=== PATIENT | male | born 1955 | race Caucasian/White ===

== ENCOUNTER → 2016-06-07 | Outpatient (CLI) | payer MEDICARE ==
--- NOTE | 2016-06-13 15:42 | Diagnostic Imaging Report ---
Indications: Right shoulder pain since lifting injury one month prior Technique: Sagittal oblique T1 weighted fast spin echo, sagittal oblique and coronal oblique T2 weighted fat saturated fast spin echo, coronal oblique and axial proton density weighted fat saturated fast spin echo sequences of the right shoulder were performed without intravenous or intra-articular gadolinium administration. Findings: Comparison: None Right supraspinatus and infraspinatus tendons are intact with nonspecific mildly increased signal distally, not sufficiently hyperintense to be considered fluid. No tendon thickening or retraction. No muscular atrophy. Teres minor, subscapularis muscles and tendons intact, unremarkable. Prominent marrow signal hyperintensity on either side of the acromioclavicular joint, latter irregular in configuration with intra-articular fluid, prominent marginal spurring, and surrounding soft tissue edema. Inferior margin spurring results in significant focal compression of the musculotendinous junction of the supraspinatus, which itself appears focally edematous. Type I acromion, neutral angulation. Subacromial space 7 mm. No significant effusion in the subacromial/subdeltoid bursa, glenohumeral joint or biceps tendon sheath. Glenohumeral joint space intact, unremarkable in appearance. Glenoid labrum grossly intact and unremarkable in appearance. Long head biceps tendon intact, normally located within the bicipital groove, unremarkable in appearance to glenoid insertion. Small circumscribed fluid signal foci within superolateral periphery of humeral head beneath supraspinatus tendon insertion. IMPRESSION: Significant acromioclavicular arthropathy with spurring, small effusion, adjacent marrow space and surrounding soft tissue edema. This is compatible with chronic degenerative arthropathy with superimposed acute trauma or arthritis. These findings result in significant focal impingement upon the supraspinatus musculotendinous junction with focal edema of the latter. Rotator cuff otherwise intact with nonspecific increased signal in distal aspects of supraspinatus and infraspinatus tendons compatible with nonspecific tendinopathy. No evidence of significant tear. Small humeral head cysts likely degenerative
== END | disposition home or self-care (01) ==
LOC: MRI 16:26
DX: M25.511 Pain in right shoulder (principal)

== ENCOUNTER → 2016-11-11 | Outpatient (CLI) | payer MEDICARE, MEDICAID | END | disposition home or self-care (01) | LOC: VAS 09:49 → EDSTATUS 14:05 | DX: M79.605 Pain in left leg (principal) | CPT/HCPCS: 93926 ==

== ENCOUNTER → 2016-11-14 | Outpatient (CLI) | payer MEDICARE, MEDICAID ==
--- NOTE | 2016-11-14 14:05 | Diagnostic Imaging Report ---
Indication: Lumbar radiculopathy times one year Technique: Sagittal T1 and T2 fast spin echo, sagittal STIR, axial T1 and T2 fast spin-echo images of the lumbar spine Comparison: No comparison MRIs. Reference made to CT abdomen pelvis dated 05/14/15 Findings: Bony alignment is normal. Vertebral body heights are preserved. Vertebral body marrow signal is normal. The disc spaces are preserved. Conus medullaris terminates at the L1 level. At L4-5, there is broad-based central posterior disc protrusion. The disc protrusions approximate 6 mm beyond the posterior margin of the vertebral body. This results in moderate narrowing of the spinal canal, and and may upon the bilateral lateral recesses. There may be slight narrowing of the bilateral neural foramina, due to facet hypertrophy and the protruding disc. At L1-2, there is bilateral facet hypertrophy. No significant disc bulge or protrusion, spinal stenosis, or neural frontal stenosis. At L2-3, facet and ligamentum flavum hypertrophy results in mild narrowing of the spinal canal in the transverse dimension. No significant disc protrusion, spinal stenosis, or neural foraminal stenosis. At L3-4, there is facet and ligamentum flavum hypertrophy. No significant disc bulge or protrusion, spinal stenosis, or neural foraminal stenosis. At the remaining levels, no significant disc bulge or protrusion, spinal stenosis, or neural foraminal narrowing. The surrounding soft tissues are unremarkable. Impression: Posterior central broad-based disc protrusion L4-5. This results in moderate spinal canal stenosis, as well as possibly impinging upon the bilateral lateral recesses and therefore the L5 nerve roots. Mild degenerative changes elsewhere, as described, without evidence of other significant neural impingement
--- NOTE | 2016-11-14 14:30 | Diagnostic Imaging Report ---
Indication: Neck pain with left-sided radiculopathy Technique: Sagittal T1 FLAIR PROPELLER, sagittal T2 PROPELLOR, sagittal STIR, axial T2 PROPELLER, axial 3D COSMIC ASPIR images were obtained through the cervical spine Comparison: 09/22/2009 Findings: Bony alignment is normal. Vertebral marrow signal is normal. Vertebral body heights are preserved. There is mild degenerative disc narrowing at C5-6, moderate degenerative disc narrowing at C6-7. The remaining disc spaces are preserved. Intrinsic cord signal is normal. At C4-5, no significant disc bulge or protrusion, or spinal stenosis. There is bilateral moderate neural foraminal stenosis, predominantly due to facet hypertrophy. At C5-6, there is, as mentioned earlier, mild degenerative disc narrowing. No significant disc bulge or protrusion or spinal stenosis. There is mild to moderate bilateral neural foraminal stenosis, predominantly due to facet hypertrophy. At C6-7 there is, as noted earlier, moderate degenerative disc narrowing. There is mild central posterior disc protrusion, but this does not significantly narrow the spinal canal or impinge upon the spinal cord. There is moderate bilateral neural foraminal stenosis, due to facet and uncinated hypertrophy. At C7-T1, no significant disc bulge or protrusion. There is mild bilateral neural foraminal stenosis, predominantly due to facet hypertrophy. Compared to the prior study, the disc narrowing at C6-7 has progressed slightly. The disc protrusion at this level is unchanged. Neural foraminal stenoses at C4-5 and C5-6 have progressed. Stenoses at C6-7 or also reported previously At the remaining disc levels, no significant disc bulge or protrusion, spinal stenosis, or neural foraminal stenosis. The included extraspinal soft tissues are unremarkable. Impression: Multilevel degenerative changes with areas of neural foraminal stenosis, as described on a level by level basis above. Note apparent slight progression of neural foraminal stenosis at C4-5 and C5-6 since earlier study of 09/22/2009 No acute bony injury
== END | disposition home or self-care (01) ==
LOC: MRI 12:47
DX: M54.17 Radiculopathy, lumbosacral region (principal); M54.12 Radiculopathy, cervical region; M51.26 Other intervertebral disc displacement, lumbar region
CPT/HCPCS: 72141; 72148

== ENCOUNTER 2017-04-29 08:46 | Outpatient (CLI) | payer MEDICARE, MEDICAID ==
--- NOTE | 2017-04-29 12:02 | Diagnostic Imaging Report ---
Indication: History of abdominal hernia and fluid collection. Follow-up. Technique: Continuous helical transaxial imaging of the abdomen was obtained from the lung bases to the iliac crests. No IV contrast given. Coronal 2-D reformats were also obtained. Study obtained in a Siemens sensation [address] Automatic Exposure Control was utilized. Total Dose length Product (DLP): 881.[address] Dose Index Volume (CTDIvol): 15.91 mGy Comparison: 05/23/2015 CT abdomen Findings: There is a tiny fluid collection within the subcutaneous fat just superficial to the left rectus muscle currently measuring 4.5 x 1.8 cm. The collection was much larger on the prior occasion and may be a resolving postoperative fluid collection such as a seroma. The muscular fascia/linea alba appears intact. There is no hernia demonstrated at this time. There is interposition of the hepatic flexure between diaphragm and liver which is a normal variant. Small hiatal hernia is present. The lung bases are clear. There is a tiny nonobstructive stone in the left kidney demonstrated. Normal appendix noted. Staple line noted in the right hemicolon. Urinary bladder is unremarkable. There is a small left inguinal hernia containing fat. IMPRESSION: 6.5 x 4.5 x 1.8 cm superficial resolving abdominal wall fluid collection. This is probably a postoperative seroma and previously much larger. No evidence of the ventral hernia at this time. No acute intra-abdominal/pelvic abnormalities. Evidence of previous bowel surgery in the right lower quadrant. Nonobstructive stone in the left kidney. Normal appendix. Small hiatal hernia. The CT scanner at [facility] is accredited by the [employer] and the scans are performed using dose optimization techniques as appropriate to a performed exam including Automatic Exposure control.
== END 2017-04-29 10:46 | disposition home or self-care (01) ==
LOC: CAT 08:46
DX: K44.9 Diaphragmatic hernia without obstruction or gangrene (principal); N20.0 Calculus of kidney
CPT/HCPCS: 74150

== ENCOUNTER 2017-08-07 08:17 | Outpatient (CLI) | payer MEDICARE, MEDICAID ==
--- NOTE | 2017-08-07 14:39 | Diagnostic Imaging Report ---
Indication: Osteoporosis Technique: 10 mm thick slices obtained through the L2, L3, and L4 vertebral bodies. Cortical and trabecular regions of interest were drawn. The average trabecular bone mineral density was calculated. Total dose length product 37 mGycm. CTDIvol(s) 5, 5, 5 mGy. Dose reduction achieved using automated exposure control Comparison: 06/15/2015 Findings: The calculated bone mineral density is 94 mg ca-HATHAWAY/ml. The T score is -3.04. This indicates the patient's bone mineral density is 3.04 standard deviations below that of normal 20-year-old males. The Z score is -0.26. This indicates the patient's bone mineral density is 0.26 standard deviations below that of age-matched controls Compared to prior exam, bone mineral density has decreased from previous value of 121 mg ca-HATHAWAY/ml Impression: Patient's bone mineral density is greater than 25% below that of normal 20-year-old males. Patient is considered osteoporotic by WHO criteria. Insufficiency fracture risk is high. Patient should be considered for therapy, if not already initiated, with followup scan in one year to monitor response to therapy. Note that mineral loss is progressive since prior study of 06/14/[address] scanner at [facility] is accredited by the [employer] and the scans are performed using protocols designed to limit radiation exposure to as low as reasonably achievable to attain images of sufficient resolution adequate for diagnostic evaluation.
== END 2017-08-07 10:17 | disposition home or self-care (01) ==
LOC: CAT 08:17
DX: M81.0 Age-related osteoporosis without current pathological fracture (principal)
CPT/HCPCS: 77078

== ENCOUNTER 2018-04-08 08:42 | Outpatient (CLI) | payer MEDICARE, MEDICAID ==
--- NOTE | 2018-04-08 11:56 | Diagnostic Imaging Report ---
Indication: Abdominal pain, history of ventral hernia repair Technique: Spiral acquisitions obtained through the abdomen and pelvis. Patient given oral contrast. No IV contrast utilized, per referring physician request.. Multiplanar reconstructions were generated. Total dose length product 891.62 mGycm. CTDIvol(s) 15.7 mGy. Dose reduction achieved using automated exposure control Comparison: 04/29/2017 Findings: There is a fluid collection superficial to the anterior fascia of the left side of the rectus abdominis muscle which measures 4.9 cm transverse by 1.6 cm AP by 7 cm craniocaudad, previously 4.5 x 1.5 x 6.6 cm. This demonstrates a thick wall, as previously. No significant surrounding fat stranding. There is no evidence of recurrent abdominal wall hernia. What may be mesh is seen superficial to the superficial rectus fascia. No evidence of diverticulosis or diverticulitis demonstrated. The appendix is normal. The distal ileum is mildly prominent, contains small bowel feces. There is also evidence of prior ileal-ileal anastomosis. This segment involvement by the anastomosis is mildly dilated, as previously. No small bowel distention otherwise. There is only partial transit of contrast through the small bowel, however. Distal esophagus, stomach, duodenum are unremarkable. The pattern of colonic interposition is again noted The gallbladder is nondistended. Bile ducts are unremarkable. Lack of IV contrast limits assessment of the solid organs. The liver, pancreas, spleen, adrenals, right kidney are unremarkable. A 3 mm calculus is seen in a left renal interpolar calyx, also evident previously. No hydronephrosis or hydroureter. No ureteral calculi. No focal renal parenchymal abnormality. The bladder and prostate are unremarkable. No pelvic mass or adenopathy. The included lung bases are clear. The bones demonstrate minimal degenerative spondylosis changes Impression: Negative for evidence of recurrent ventral hernia Thick-walled fluid collection anterior to the rectus sheaths to the left of midline in the anterior abdominal wall, evident previously and most likely a postoperative seroma. Infected collection is also a possibility and correlation with clinical findings is suggested. Note that this collection is slightly larger than on the prior exam of 04/29/2017 No other acute abnormality or findings to suggest etiology of stated clinical history of abdominal pain Note somewhat delayed transit of contrast through the small bowel, with evidence of stasis of distal small bowel contents. This finding is also evident on the previous exam and is likely baseline for this patient Evidence of prior small bowel surgery Nonobstructive 3 mm left intrarenal calculus, also previously described Other incidental findings as noted The CT scanner at [facility] is accredited by the [employer] and the scans are performed using protocols designed to limit radiation exposure to as low as reasonably achievable to attain images of sufficient resolution adequate for diagnostic evaluation.
== END 2018-04-08 10:42 | disposition home or self-care (01) ==
LOC: CAT 08:42
DX: R10.9 Unspecified abdominal pain (principal); N20.0 Calculus of kidney
CPT/HCPCS: 74176

== ENCOUNTER → 2018-11-03 | Emergency (ER) | payer MEDICARE, MEDICAID ==
[~2018-11-03] VITALS: Ht 180.3 cm; Wt 90.7 kg
[~2018-11-03] MED LIST: ASPIRIN81 MG ORAL; ATORVASTATIN CA40 MG ORAL; CIPROFLOXACIN500 M2 ORAL; DUTASTERIDE0.5 MG PO; FLOMAX0.4 MG ORAL; FOLIC ACID1 MG ORAL; GABAPENTIN600 MG ORAL; LOSARTAN POTASS50 MG ORAL; METOPROLOL SUCC50 MG ORAL; MIRTAZAPINE15 M3 ORAL; MULTIVITAMINS1 EAC2 ORAL; ROXICODONE15 MG ORAL; TRIUMEQ 600-501 EACH PO; VENLAFAXINE HC150 MG ORAL; VITAMIN D22000 UNIT PO; ZETIA10 MG ORAL
[2018-11-03 10:28] VITALS: BP 114/76
--- NOTE | 2018-11-03 10:49 | NUR ---
ED Nurse Note: Patient walked in ER due to one episode of low abdominal pain/discomfort last night. Reports no abdominal pain or N/V at this time. Abdomen is round, soft; bulging area on the left side abdomen noted. Patient had hernia repair in 2015. Patient able to tolerate oral intake without problem. No facial grimacing or guarding noted. Bed in lowest position.
--- NOTE | 2018-11-03 11:15 | NUR ---
ED Nurse Note: Report given to PREM Sánchez.
--- NOTE | 2018-11-03 11:27 | NUR ---
ED Nurse Note: Urine/blood sample collected and sent.
[2018-11-03 11:28] LABS: APPEARANCE,URINE CLEAR; BILIRUBIN, URINE NEGATIVE (NEGATIVE); COLOR,URINE PALE YELLOW; GLUCOSE, URINE (UA) NEGATIVE (NEGATIVE); KETONES,URINE NEGATIVE (NEGATIVE); LEUKOCYTE ESTERASE ,URINE 1+ (NEGATIVE); NITRITE,URINE NEGATIVE (NEGATIVE); PH,URINE 6 (4.5-8.0); PROTEIN,URINE NEGATIVE (NEGATIVE); UROBILINOGEN,URINE 1 MG/DL (0.0-1.0)
[2018-11-03 11:30] LABS: BASOPHILS % (AUTO) 0.5 % (0.0-2.0); EOSINOPHILS % (AUTO) 2.6 % (0.0-3.0); HEMATOCRIT 39.8 % (42.0-52.0); HEMOGLOBIN 13.6 G/DL (14.2-18.0); LYMPHOCYTES % (AUTO) 16.1 % (20.0-45.0); MEAN CORPUSCULAR VOLUME 98 FL (80-99); MONOCYTES % (AUTO) 8.8 % (1.0-10.0); PLATELET COUNT 254 K/UL (150-450); RED BLOOD COUNT 4.08 M/UL (4.70-6.10); RED CELL DISTRIBUTION WIDTH 11.7 % (11.6-14.8); WHITE BLOOD COUNT 10.6 K/UL (4.8-10.8)
[2018-11-03 11:43] LABS: ANION GAP 8 mmol/L (5-15); BLOOD UREA NITROGEN 13 mg/dL (7-18); CALCIUM 8.6 MG/DL (8.5-10.1); CARBON DIOXIDE 24 MMOL/L (21-32); CHLORIDE 109 MMOL/L (98-107); CREATININE 1.8 MG/DL (0.55-1.30); POTASSIUM 3.4 MMOL/L (3.5-5.1); SODIUM 141 MMOL/L (136-145)
[2018-11-03 11:48] LABS: ALANINE AMINOTRANSFERASE 28 U/L (12-78); ALBUMIN 3.2 G/DL (3.4-5.0); ALKALINE PHOSPHATASE 91 U/L (46-116); ASPARTATE AMINO TRANSFERASE 20 U/L (15-37); BILIRUBIN,TOTAL 0.6 MG/DL (0.2-1.0)
--- NOTE | 2018-11-03 12:58 | NUR ---
ER DISCHARGE NOTE: Patient is cleared to be discharged per ERMD, pt is aox4, on room air, with stable vital signs. pt was given dc and prescription instructions, pt was able to verbalize understanding, pt id band and iv site removed without complications. pt is able to ambulate with steady gait. pt took all belongings.
--- NOTE | 2018-11-03 18:06 | Emergency Room Report ---
History of Present Illness General Chief Complaint: Abdominal Pain Source: Patient Present Illness HPI Patient has a history of abdominal surgery and prior seroma formation secondary to the abdominal surgery. Patient had a history of hernia repair. Patient presents to the emergency department today complaining of discomfort in the left lower quadrant night. However the pain is completely resolved at this time. Patient states that he does feel a little bloated. But denies any nausea vomiting diarrhea chills. Denies any dysuria urinary frequency. Patient does have a history of leukocytes in his urine but has not received treatment. Patient is currently asymptomatic. No other modifying factors. No other associated signs and symptoms. No other complaints were noted. Allergies: Coded Allergies: No Known Allergies (Verified Allergy, Unknown, 08/28/10) Patient History Past Medical History: none Past Surgical History: other - Prior hernia repair and panniculectomy Social History: Denies: smoking, alcohol use, drug use Reviewed Nursing Documentation: PMH: Agreed; PSxH: Agreed Nursing Documentation-PMH Past Medical History: No History, Except For Review of Systems All Other Systems: negative except mentioned in HPI Physical Exam Vital Signs Date Time Temp Pulse Resp B/P (MAP) Pulse Ox O2 Delivery O2 Flow Rate FiO2 11/03/18 10:28 97.9 92 20 114/76 (89) 98 Room Air Sp02 EP Interpretation: reviewed, normal General Appearance: normal inspection, well appearing, no apparent distress, alert Head: atraumatic Eyes: bilateral eye normal inspection ENT: normal ENT inspection, hearing grossly normal, normal voice Neck: normal inspection, full range of motion, supple, no bony tend Respiratory: normal inspection, lungs clear, normal breath sounds, no respiratory distress, no retraction, no wheezing Cardiovascular #1: regular rate, rhythm, no edema Gastrointestinal: normal inspection, normal bowel sounds, non tender, soft, no guarding, no hernia Genitourinary: no CVA tenderness Musculoskeletal: normal inspection, back normal, normal range of motion Neurologic: normal inspection, alert, responsive, speech normal Psychiatric: normal inspection, judgement/insight normal, mood/affect normal Skin: no rash Medical Decision Making Diagnostic Impression: Primary Impression: Abdominal pain Additional Impression: UTI (urinary tract infection) ER Course Patient resents to the emergency department today complaining of acute abdominal pain. Pain however is resolved. Differential diagnosis includes diverticulitis, colitis, constipation, bowel spasm,, infectious process. Just to name a few. Given the severity of the patient's presentation I felt this is a highly complex patient. This patient required extensive workup. Patient initially did not want to have any work-up given the symptoms have resolved. However after discussion patient agreed to have laboratory work. The plan was that if the laboratory work-up was positive for that it patient had worsening abdominal pain during the visit and a CT scan will be obtained. Patient's laboratory work-up is negative. And patient's abdominal pain did not return. Given that patient had a benign abdominal exam with a negative work-up appropriate to discharge the patient. Patient however his general surgeon for further evaluation should he require further surgery for any complications from his prior surgery. Patient's UA was positive for leukocytes therefore we will start patient on Cipro. Patient appears reliable and states that he will return to the emergency department for symptoms. Patient is advised to follow up with primary doctor in 2-3 days and return the emergency room for any worsening symptoms and as needed. Labs Test 11/03/18 11:05 White Blood Count 10.6 K/UL (4.8-10.8) Red Blood Count 4.08 M/UL (4.70-6.10) Hemoglobin 13.6 G/DL (14.2-18.0) Hematocrit 39.8 % (42.0-52.0) Mean Corpuscular Volume 98 FL (80-99) Mean Corpuscular Hemoglobin 33.4 PG (27.0-31.0) Mean Corpuscular Hemoglobin Concent 34.2 G/DL (32.0-36.0) Red Cell Distribution Width 11.7 % (11.6-14.8) Platelet Count 254 K/UL (150-450) Mean Platelet Volume 6.0 FL (6.5-10.1) Neutrophils (%) (Auto) 72.0 % (45.0-75.0) Lymphocytes (%) (Auto) 16.1 % (20.0-45.0) Monocytes (%) (Auto) 8.8 % (1.0-10.0) Eosinophils (%) (Auto) 2.6 % (0.0-3.0) Basophils (%) (Auto) 0.5 % (0.0-2.0) Urine Color Pale yellow Urine Appearance Clear Urine pH 6 (4.5-8.0) Urine Specific [place] 1.020 (1.005-1.035) Urine Protein Negative (NEGATIVE) Urine Glucose (UA) Negative (NEGATIVE) Urine Ketones Negative (NEGATIVE) Urine Blood Negative (NEGATIVE) Urine Nitrite Negative (NEGATIVE) Urine Bilirubin Negative (NEGATIVE) Urine Urobilinogen 1 MG/DL (0.0-1.0) Urine Leukocyte Esterase 1+ (NEGATIVE) Urine RBC 0 /HPF (0 - 0) Urine WBC 2-4 /HPF (0 - 0) Urine Squamous Epithelial Cells Few /LPF (NONE/OCC) Urine Bacteria Occasional /HPF (NONE) Sodium Level 141 MMOL/L (136-145) Potassium Level 3.4 MMOL/L (3.5-5.1) Chloride Level 109 MMOL/L (98-107) Carbon Dioxide Level 24 MMOL/L (21-32) Anion Gap 8 mmol/L (5-15) Blood Urea Nitrogen 13 mg/dL (7-18) Creatinine 1.8 MG/DL (0.55-1.30) Estimat Glomerular Filtration Rate 38.2 mL/min (>60) Glucose Level 106 MG/DL (74-106) Calcium Level 8.6 MG/DL (8.5-10.1) Total Bilirubin 0.6 MG/DL (0.2-1.0) Aspartate Amino Transf (AST/SGOT) 20 U/L (15-37) Alanine Aminotransferase (ALT/SGPT) 28 U/L (12-78) Alkaline Phosphatase 91 U/L (46-116) Total Protein 6.5 G/DL (6.4-8.2) Albumin 3.2 G/DL (3.4-5.0) Globulin 3.3 g/dL Albumin/Globulin Ratio 1.0 (1.0-2.7) Lipase 123 U/L (73-393) Last Vital Signs Date Time Temp Pulse Resp B/P (MAP) Pulse Ox O2 Delivery O2 Flow Rate FiO2 11/03/18 10:49 18 Room Air 11/03/18 10:28 97.9 92 114/76 (89) 98 Status: improved Disposition: HOME, SELF-CARE Condition: Stable Scripts Ciprofloxacin Hcl* (CIPROFLOXACIN HCL*) 500 Mg Tablet 500 MG ORAL Q12H, #14 TAB 0 Refills Prov: Cristofer King MD 11/03/18 Referrals: Sacha Chandra Patient Instructions: Urinary Tract Infection, Abdominal Pain, Adult Cristofer King MD Nov 03, 2018 18:06
== END | disposition home or self-care (01) ==
LOC: EMR 11:30
DX: N39.0 Urinary tract infection, site not specified (principal); R10.30 Lower abdominal pain, unspecified
CPT/HCPCS: 36415; 80053; 81003; 83690; 85025; 99283